=== PATIENT | male | born 1980 | race Caucasian/White ===

== ENCOUNTER 2019-04-18 11:26 | Emergency (ER) | payer MEDICAID ==
[~2019-04-18] VITALS: Ht 188 cm; Wt 11.4 kg
[~2019-04-18 11:26] MED LIST: AMLO10TA13 PO; ASPI81TA35 PO; LISI-600 PO; METH-360 PO; OMEP20CA11 PO; SUCR1ORA2 PO
[2019-04-18 11:29] VITALS: BP 167/101
[2019-04-18] MEDS ORDERED: ketorolac trometh inj. 60 MG/2 ML VIAL IM ONE (12:30)
[2019-04-18] MEDS ORDERED: HYDROcodone/acetaminophen 5mg/325mg tablet PO ONE (12:30)
[2019-04-18] MEDS ORDERED: METH500T PO (12:35)
[2019-04-18] MEDS ORDERED: HYDR-4384 PO (12:35)
== END 2019-04-18 13:18 | disposition home or self-care (01) ==
LOC: ER 11:26
DX: M54.2 Cervicalgia (principal); G89.29 Other chronic pain; M10.9 Gout, unspecified; F12.90 Cannabis use, unspecified, uncomplicated; F10.99 Alcohol use, unspecified with unspecified alcohol-induced disorder; Z98.890 Other specified postprocedural states; Z56.0 Unemployment, unspecified; Z88.0 Allergy status to penicillin; Z79.82 Long term (current) use of aspirin; Z79.899 Other long term (current) drug therapy; Y90.9 Presence of alcohol in blood, level not specified
CPT/HCPCS: 96372; 99283; J1885

== ENCOUNTER 2019-09-07 10:38 | Emergency (ER) | payer MEDICAID ==
[~2019-09-07] VITALS: Ht 185.4 cm; Wt 114.0 kg
[~2019-09-07 10:38] MED LIST changes: +METH500T PO; +OMEP-297 PO; -OMEP20CA11 PO
[2019-09-07 11:00] VITALS: BP 174/104
== END 2019-09-07 12:41 | disposition home or self-care (01) ==
LOC: ER 10:38
DX: S60.511A Abrasion of right hand, initial encounter (principal); G89.29 Other chronic pain; F12.90 Cannabis use, unspecified, uncomplicated; Z56.0 Unemployment, unspecified; Z98.890 Other specified postprocedural states; Z88.0 Allergy status to penicillin; Z79.82 Long term (current) use of aspirin; Z79.899 Other long term (current) drug therapy; Y04.8XXA Assault by other bodily force, initial encounter; Y93.89 Activity, other specified; Y92.89 Other specified places as the place of occurrence of the external cause; Y99.8 Other external cause status
CPT/HCPCS: 29125; 73130; 99283